=== PATIENT | female | born 1985 | race American Indian/Alaskan Native ===

== ENCOUNTER 2020-05-10 08:36 | Outpatient (CLI) | payer BC ==
--- NOTE | 2020-05-10 09:52 | Ultrasound Report ---
ULTRASOUND BREAST LEFT LIMITED, 05/10/2020 CLINICAL INFORMATION / INDICATION: The patient reports a lump in the left breast. TECHNIQUE: Targeted ultrasound evaluation was performed of the area of interest. COMPARISON: None. FINDINGS: Sonographic evaluation of the left breast at the 10:00 position 4 cm from the nipple demonstrates a 2 .1 cm simple cyst. This corresponds to the patient's area of palpable concern. A smaller 6 mm cyst is incidentally noted in the adjacent retroareolar region. There is no evidence of suspicious solid mas s or shadowing. IMPRESSION: No sonographic evidence of malignancy. The patient's area of palpable concern corresponds to a simple cyst as described above. Follow up recommendation: Clinical exam BI-RADS Category 2: Benign. A normal or "negative" report should not preclude biopsy or follow-up of a clinically suspicious find ing. Signer Name: Cyndi Griffin MD Signed: 05/10/2020 9:48 AM Workstation Name: [email or web address]
== END 2020-05-10 08:37 | disposition home or self-care (01) ==
LOC: US 08:36
PROVIDERS: ATTEND Obstetrics & Gynecology
DX: N60.02 Solitary cyst of left breast (principal); N63.20 Unspecified lump in the left breast, unspecified quadrant